=== PATIENT | male | born 2000 | race Caucasian/White ===

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

== ENCOUNTER 2022-07-03 10:02 | Emergency (ER) | payer BC ==
[~2022-07-03] VITALS: Ht 20.3 cm; Wt 90.9 kg
[~2022-07-03 10:02] MED LIST: NORCO 325 MG-51 TAB PO
[2022-07-03 10:10] VITALS: TEMP 97.3
[2022-07-03] MEDS ORDERED: ZOFRAN 4MG T4 MG/TAB PO (10:54)
[2022-07-03] MEDS ORDERED: CEFTIN500 MG PO (10:54)
[2022-07-03 12:02] VITALS: BP 118/63; PULSE 63
== END 2022-07-03 12:13 | disposition home or self-care (01) ==
LOC: COL.ER 10:02
DX: R11.2 Nausea with vomiting, unspecified (principal)
CPT/HCPCS: J2405; J7030